=== PATIENT | male | born 1965 ===

== ENCOUNTER 2018-07-04 15:57 | Emergency (ER) | payer MEDICAID ==
[2018-07-04 16:03] VITALS: BMI 34.7
[2018-07-04] MEDS ORDERED: Sodium Chloride 0.9% 1,000 ML IV STA (16:57)
[2018-07-04] MEDS ORDERED: Insulin Regular 1 UNITS/0.01 ML ML IVP STA (16:57)
--- NOTE | 2018-07-04 17:11 | ED PDOC ---
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 Notes that he saw his PMD for the pain was given two tablets which he took without relieve. Also notes that he took Gas-x and it relieved the pain temporary and then came back today. Reports normal BM today. Denies nausea, vomiting, diarrhea, constipation, fever, chills, chest pain, hematuria, urinary symptoms, tearing/ripping upper back pain, any other complaint. Past Medical History - Provider Review Nursing Documentation Reviewed: Yes - Infectious Disease Hx of Infectious Diseases: None - Cardiac Hx Cardiac Disorders: Yes Hx Hypertension: Yes - Pulmonary Hx Respiratory Disorders: No - Neurological Hx Neurological Disorder: No - HEENT Hx HEENT Disorder: No - Renal Hx Renal Disorder: No - Endocrine/Metabolic Hx Endocrine Disorders: Yes Hx Diabetes Mellitus Type 2: Yes - Hematological/Oncological Hx Blood Disorders: No - Integumentary Hx Dermatological Disorder: No Hx Basal Cell Carcinoma: No - Musculoskeletal/Rheumatological Hx Musculoskeletal Disorders: No - Gastrointestinal Hx Gastrointestinal Disorders: No - Genitourinary/Gynecological Hx Genitourinary Disorders: No - Psychiatric Hx Psychophysiologic Disorder: No Hx Substance Use: No - Surgical History Hx Tonsillectomy: Yes Family/Social History - Physician Review Nursing Documentation Reviewed: Yes Family/Social History: Unknown Family HX Smoking Status: Never Smoked Hx Alcohol Use: No Hx Substance Use: No Allergies/Home Meds Allergies/Adverse Reactions: Allergies No Known Allergies Allergy (Verified 05/17/16 13:29) Home Medications: Home Meds Medication Instructions Recorded Confirmed Insulin Glargine, Recombina 40 units SC HS 05/17/16 07/04/18 [Lantus] Insulin Lispro [humALOG] 20 units SC BID 05/17/16 07/04/18 Lisinopril [Prinivil] 20 mg PO DAILY 05/17/16 07/04/18 Sitagliptin Phos/Metformin HCl 1 tab PO DAILY 05/17/16 07/04/18 [Janumet 50-1,000 mg Tablet] Review of Systems - Physician Review All systems were reviewed & negative as marked: Yes - Review of Systems Constitutional: Normal Eyes: Normal ENT: Normal Respiratory: Normal Cardiovascular: Normal Gastrointestinal: Abdominal Pain. absent: Constipation, Diarrhea, Nausea, Vomiting, Hematemesis Genitourinary Male: Normal Musculoskeletal: Back Pain Skin: Normal Neurological: Normal Endocrine: Normal Hemo/Lymphatic: Normal Psychiatric: Normal Physical Exam Vital Signs Reviewed: Yes Vital Signs Temp Pulse Resp BP Pulse Ox 07/04/18 16:45 81 145/98 H 07/04/18 16:03 98.0 F 80 18 168/105 H 99 07/04/18 15:57 98 F 89 16 145/98 H 98 Temperature: Afebrile Blood Pressure: Normal Pulse: Regular Respiratory Rate: Normal Appearance: Positive for: Well-Appearing, Non-Toxic, Comfortable Pain Distress: None Mental Status: Positive for: Alert and Oriented X 3 Finger Stick Blood Glucose: 448 - Systems Exam Head: Present: Atraumatic, Normocephalic Pupils: Present: PERRL Extroacular Muscles: Present: EOMI Conjunctiva: Present: Normal Mouth: Present: Moist Mucous Membranes Neck: Present: Normal Range of Motion Respiratory/Chest: Present: Clear to Auscultation, Good Air Exchange. No: Respiratory Distress, Accessory Muscle Use Cardiovascular: Present: Regular Rate and Rhythm, Normal S1, S2. No: Murmurs Abdomen: Present: Tenderness (Left pelvic tenderness), Normal Bowel Sounds, Guarding (Voluntary), Other (soft). No: Distention, Peritoneal Signs, Rebound, McBurney's Point Tender, Rovsing's Sign Present Back: Present: Paraspinal Tenderness (Left paraspinous tenderness). No: CVA Tenderness, Midline Tenderness Upper Extremity: Present: Normal Inspection. No: Cyanosis, Edema Lower Extremity: Present: Normal Inspection. No: Edema Neurological: Present: GCS=15, CN II-XII Intact, Speech Normal Skin: Present: Warm, Dry, Normal Color. No: Rashes Psychiatric: Present: Alert, Oriented x 3, Normal Insight, Normal Concentration Medical Decision Making ED Course and Treatment: 07/04/18 18:37 Pt presented to ED for stated history. He as in no distress. His BP and BS was elevated in ED. He reproted not taking his medication for a week now. states he ran out of his insulin and antihypertensive and his PMD called it in to his pharmacy but he have not been able to pick it up. He denies chest pain, focal weakness, SOB, slurred speech, headache, dizziness, polyuria/dipsia/phagia. Labs EKG Insulin, 1L NS, Norvasc, Toradol, Pepcid Abdominal/Pelvic CT to r/o renal colic, although pt had no CVAT Will reassess On r evaluation pt's BS and BP improved with medication. He also report improvement of his pain in ED Lab was noted with elevated BS 468, otherwise unremarkable EKG NSR @ 81bpm Left anterior fasicular block N-stemi Abdominal/Pelvic CT IMPRESSION: No evidence of nephrolithiasis or hydronephrosis. No evidence of significant interval changes since the previous exam. Pt's back pain likely MS in nature with possible inguinal ligament strain pain. all result was DW the pt. He was given Naprosyn and pepcid rx. He was strongly advised to go fruit picker his prescriptions from the pharmacy. Referred to ortho/GI/PMD. Advised TRT ED for any new or worsening symptoms. He verbalized understanding of the instructions. - RAD Interpretation Radiology Orders: 07/04/18 16:30 ABD & PELVIS W/O PO OR IV CONT [CT] Stat - Medication Orders Current Medication Orders: Sodium Chloride (Sodium Chloride 0.9%) 1,000 mls @ 999 mls/hr IV .Q1H1M STA Stop: 07/04/18 17:57 Discontinued Medications Amlodipine Besylate (Norvasc) 5 mg PO STAT STA Stop: 07/04/18 16:33 Last Admin: 07/04/18 16:45 Dose: 5 mg MAR Pulse and Blood Pressure Document 07/04/18 16:45 EB (Rec: 07/04/18 16:47 EB [id number]) Pulse Pulse Rate (60-90 beats/min) 81 Blood Pressure Blood Pressure (100/60-150/90 mm Hg) 145/98 Famotidine (Pepcid) 20 mg IVP STAT STA Stop: 07/04/18 16:33 Last Admin: 07/04/18 16:45 Dose: 20 mg IVP Administration Document 07/04/18 16:45 EB (Rec: 07/04/18 16:45 EB [id number]) Charges for Administration # of IVP Administrations 1 Insulin Human Regular (Humulin R) 8 units IVP ONCE STA Stop: 07/04/18 16:58 Ketorolac Tromethamine (Toradol) 30 mg IVP STAT STA Stop: 07/04/18 16:32 Last Admin: 07/04/18 16:44 Dose: 30 mg MAR Pain Assessment Document 07/04/18 16:44 EB (Rec: 07/04/18 16:45 EB [id number]) Pain Reassessment Is this a pain reassessment? No Pain Scale Used Protocol: PSCALES Pain Scale Used Numeric Description Intensity of Pain at present 8 IVP Administration Document 07/04/18 16:44 EB (Rec: 07/04/18 16:45 EB [id number]) Charges for Administration # of IVP Administrations 1 Disposition/Present on Arrival - Present on Arrival Any Indicators Present on Arrival: No History of DVT/PE: No History of Uncontrolled Diabetes: No Urinary Catheter: No History of Decub. Ulcer: No History Surgical Site Infection Following: None - Disposition Have Diagnosis and Disposition been Completed?: Yes Diagnosis: Uncontrolled diabetes mellitus, Hypertension, Back pain, Pelvic pain Disposition: HOME/ ROUTINE Disposition Time: 18:30 Patient Plan: Discharge Patient Problems: Current Active Problems Problem Status Onset Back pain Acute Hypertension Acute Pelvic pain Acute Uncontrolled diabetes mellitus Acute Condition: STABLE Discharge Instructions (ExitCare): Type 2 Diabetes, High Blood Pressure in Adults, Acute Abdomen (Belly Pain), Adult (DC), Acute Pelvic Pain Additional Instructions: Follow up with your Doctor/C[facility] [employer]older/Urologist Return to ED for any new or worsening symptoms Prescriptions: Famotidine [Pepcid] 20 mg PO DAILY #10 tab Naproxen [Naprosyn] 500 mg PO BID #20 tablet Referrals: Tiffanie Swan MD [Primary Care Provider] - Follow up with primary Dmitri Tony MD [Staff Provider] - Follow up with primary Raymond Cardenas MD [Staff Provider] - Follow up with primary Forms: [employer] ([place])
[2018-07-04 17:18] LABS: BASO # 0.04 K/mm3 (0.0-2.0); BASO % 0.4 % (0.0-3.0); EOS # 0.1 (0.0-0.7); EOS % 0.9 % (1.5-5.0); GRAN # 6.37 (1.4-6.5); GRAN % 66.1 % (50.0-68.0); HEMOGLOBIN 15.8 g/dL (14.0-18.0); LYMPH # 2.3 (1.2-3.4); LYMPH % 24.1 % (22.0-35.0); MEAN CELL VOLUME 86.6 fl (80.0-105.0); MEAN CORPUSCULAR HEMOGLOBIN 30.6 pg (25.0-35.0); MEAN CORPUSCULAR HGB CONC 35.3 g/dl (31.0-37.0); MEAN PLATELET VOLUME 11.6 fl (7.0-11.0); MONO # 0.8 (0.1-0.6); MONO % 8.5 % (1.0-6.0); RBC 5.16 10^6/uL (3.5-6.1); RED CELL DISTRIBUTION WIDTH 12.4 % (11.5-14.5); WHITE BLOOD COUNT 9.7 10^3/uL (4.5-11.0)
[2018-07-04 17:22] LABS: INR 0.98; PARTIAL THROMBOPLASTIN TIME 30.7 Seconds (25.1-36.5); PROTHROMBIN TIME 11.2 SECONDS (9.4-12.5)
[2018-07-04 17:36] LABS: TROPONIN I < 0.01 ng/mL
[2018-07-04 17:39] LABS: ALB/GLOB RATIO 1.1 (1.1-1.8); ALBUMIN 3.5 g/dL (3.0-4.8); ALT/SGPT 32 U/L (7-56); AST/SGOT 24 U/L (17-59); BLOOD UREA NITROGEN 19 mg/dL (7-21); CALCIUM 8.8 mg/dL (8.4-10.5); GFR NON-AFRICAN AMERICAN > 60; LIPASE 247 U/L (23-300)
[2018-07-04 17:42] VITALS: RESP 16
--- NOTE | 2018-07-04 17:56 | CT ---
Date of service: 07/04/2018 PROCEDURE: CT Abdomen and Pelvis without intravenous contrast HISTORY: Left pelvic pain COMPARISON: Comparison is made to the previous study dated 11/30/2015 TECHNIQUE: Axial and reformatted coronal and sagittal CT images of the abdomen and pelvis were obtained without IV or oral contrast administration.. Contrast dose: 0 Radiation dose: Total exam DLP = 1210.71 mGy-cm. This CT exam was performed using one or more of the following dose reduction techniques: Automated exposure control, adjustment of the mA and/or kV according to patient size, and/or use of iterative reconstruction technique. FINDINGS: LOWER THORAX: No evidence of acute pathology. Mild cardiomegaly is noted. No evidence of pleural effusion or pericardial effusion. LIVER: The liver is mildly enlarged. GALLBLADDER AND BILE DUCTS: No evidence of acute cholecystitis. PANCREAS: No evidence of pancreatitis or dilated main pancreatic duct SPLEEN: Unremarkable. ADRENALS: Unremarkable. No mass. KIDNEYS AND URETERS: Unremarkable. No hydronephrosis. No solid mass. Again noted is low-attenuation exophytic lesion at the upper pole of the right kidney measures 2.5 centimeter likely represent renal cyst. There is nonspecific mild bilateral perinephric stranding. The ureters are not dilated. VASCULATURE: The left renal vein is extending to the left common iliac vein. No aortic aneurysm. No aortic atherosclerotic calcification or mural plaque present. BOWEL: Unremarkable. No obstruction. No gross mural thickening. APPENDIX: No evidence of acute appendicitis. PERITONEUM: Unremarkable. No free fluid. No free air. LYMPH NODES: Unremarkable. No enlarged lymph nodes. BLADDER: Unremarkable. REPRODUCTIVE: Mildly enlarged prostate. BONES: No acute fracture. OTHER FINDINGS: There is a small fat containing right inguinal hernia. IMPRESSION: No evidence of nephrolithiasis or hydronephrosis. No evidence of significant interval changes since the previous exam.
[2018-07-04 18:17] LABS: URINE BILIRUBIN NEGATIVE (NEGATIVE); URINE BLOOD NEGATIVE (NEGATIVE); URINE GLUCOSE (UA) >=1000 mg/dL (NEGATIVE); URINE LEUKOCYTE ESTERASE NEGATIVE Leu/uL (NEGATIVE); URINE PROTEIN NEGATIVE mg/dL (<30 mg/dL); URINE UROBILINOGEN 0.2 E.U./dL (<1 E.U./dL)
[2018-07-04 18:18] LABS: URINE APPEARANCE CLEAR (CLEAR); URINE COLOR YELLOW (YELLOW)
--- NOTE | 2018-07-04 18:33 | CARD ---
APPROVED REPORT Date of service: 07/04/2018 EKG Measurement Heart [id number] [id number]-3 [id number] <Conclusion> Normal sinus rhythm Left anterior fascicular block Abnormal ECG
[2018-07-04 19:11] VITALS: BP 134/78; PULSE 78; TEMP 98; O2SAT 97
== END 2018-07-04 18:40 | disposition home or self-care (01) ==
LOC: ED 15:57
DX: E11.9 Type 2 diabetes mellitus without complications (principal); I10 Essential (primary) hypertension; R10.2 Pelvic and perineal pain; M54.9 Dorsalgia, unspecified
CPT/HCPCS: 74176; 80053; 81003; 82550; 82948; 83615; 83690; 84484; 85025; 85610; 85730; 93005; 96361; 96374; 96375; 99284; J1885; J7030